=== PATIENT | male | born 1960 | race Caucasian/White ===

== ENCOUNTER → 2018-03-20 | Outpatient (CLI) | payer BC ==
[2018-03-20 10:27] LABS: Basophils # (auto) 0 uL; Basophils % (auto) 0.7 % (0.0-2.0); Eosinophils # (auto) 0.2 uL; Eosinophils % (auto) 2.3 % (0.0-7.0); Hematocrit 44.7 % (41.0-53.0); Hemoglobin 14.9 g/dL (13.5-17.5); Lymphocytes % (auto) 14.4 % (10.0-50.0); Mean Corpuscular Hemoglobin 29.8 pg (28.0-32.0); Mean Corpuscular Hgb Conc. 33.4 g/dL (32.0-36.0); Mean Corpuscular Volume 89.5 fL (80.0-100.0); Monocytes # (auto) 0.6 uL; Monocytes % (auto) 8.3 % (0.0-12.0); Neutrophils # (auto) 5.2 uL; Neutrophils % (auto) 74.3 % (37.0-80.0); Nucleated Red Blood Cells % 0.2 %; Platelet Count (auto) 219 10^3/uL (140-450); Red Cell Distribution Width 12.6 % (11.8-14.3)
[2018-03-20 10:52] LABS: Albumin 3.5 g/dL (3.4-5.0); Potassium 4.3 mmol/L (3.5-5.1)
[2018-03-20 11:00] LABS: BUN/Creatinine Ratio 19.8; Bilirubin, Total 0.5 mg/dL (0.2-1.0); Calcium 8.7 mg/dL (8.5-10.1)
== END | disposition home or self-care (01) ==
LOC: LAB 07:25
PROVIDERS: ATTEND Internal Medicine
DX: Z12.11 Encounter for screening for malignant neoplasm of colon (principal); E78.5 Hyperlipidemia, unspecified; E85.2 Heredofamilial amyloidosis, unspecified
CPT/HCPCS: 36415; 80053; 80061; 84153; 84443; 85025

== ENCOUNTER → 2018-03-28 | Outpatient (CLI) | payer BC | END | disposition home or self-care (01) | LOC: LAB 16:22 | PROVIDERS: ATTEND Internal Medicine | DX: Z12.11 Encounter for screening for malignant neoplasm of colon (principal); E85.2 Heredofamilial amyloidosis, unspecified; E78.5 Hyperlipidemia, unspecified | CPT/HCPCS: 82274 ==

== ENCOUNTER → 2018-06-12 | Day surgery (SDC) | payer BC ==
[2018-06-08 08:46] LABS: Basophils # (auto) 0 uL; Basophils % (auto) 0.6 % (0.0-2.0); Eosinophils # (auto) 0.1 uL; Eosinophils % (auto) 1.6 % (0.0-7.0); Hematocrit 45.1 % (41.0-53.0); Hemoglobin 15.6 g/dL (13.5-17.5); Lymphocytes # (auto) 1.2 uL; Mean Corpuscular Hemoglobin 30.3 pg (28.0-32.0); Mean Corpuscular Hgb Conc. 34.6 g/dL (32.0-36.0); Mean Corpuscular Volume 87.6 fL (80.0-100.0); Monocytes # (auto) 0.4 uL; Monocytes % (auto) 8.2 % (0.0-12.0); Neutrophils # (auto) 3.6 uL; Neutrophils % (auto) 67.6 % (37.0-80.0); Platelet Count (auto) 209 10^3/uL (140-450); Red Blood Cells 5.15 10^6/uL (4.5-5.90); Red Cell Distribution Width 12.5 % (11.8-14.3); White Blood Cell 5.3 10^3/uL (4.4-10.8)
[2018-06-08 09:04] LABS: INR 0.9 (0.9-1.15); Partial Thromboplastin Time 26.3 sec (23.78-33.04); Prothrombin Time 9.7 sec (9.27-12.13)
[~2018-06-12] VITALS: Ht 172.7 cm; Wt 78.0 kg
[~2018-06-12] MED LIST: SIMV10TA84 PO; SODIUM CHLORIDE LOCK 10 ML ONE; diphenhdrAMINE HCL 50 MG/1 ML VL ONE
[2018-06-12] MEDS: fentaNYL CITRATE 100 MCG/2 ML VL ONE ×2 (10:02→10:08)
[2018-06-12] MEDS: MIDAZOLAM HCL 5 MG/ML-1ML VIAL ONE ×2 (10:02→10:08)
[2018-06-12 10:55] VITALS: BP 121/63
== END | disposition home or self-care (01) ==
LOC: GI 08:58
PROVIDERS: ATTEND Internal Medicine Gastroenterology
DX: K64.8 Other hemorrhoids (principal); D12.5 Benign neoplasm of sigmoid colon; Z79.899 Other long term (current) drug therapy
CPT/HCPCS: 36415; 45380; 85025; 85610; 85730; 88305; J1200; J2250; J3010; J7030; 99152

== ENCOUNTER → 2019-06-25 | Outpatient (CLI) | payer BC ==
[~2019-06-25] MED LIST changes: -SODIUM CHLORIDE LOCK 10 ML ONE; -diphenhdrAMINE HCL 50 MG/1 ML VL ONE
[2019-06-25 08:21] LABS: Basophils # (auto) 0 uL; Basophils % (auto) 0.5 % (0.0-2.0); Eosinophils # (auto) 0.1 uL; Eosinophils % (auto) 1.7 % (0.0-7.0); Hematocrit 45.2 % (41.0-53.0); Hemoglobin 15.6 g/dL (13.5-17.5); Lymphocytes % (auto) 20.7 % (10.0-50.0); Mean Corpuscular Hemoglobin 30.8 pg (28.0-32.0); Mean Corpuscular Hgb Conc. 34.6 g/dL (32.0-36.0); Mean Corpuscular Volume 88.9 fL (80.0-100.0); Monocytes # (auto) 0.4 uL; Monocytes % (auto) 8.4 % (0.0-12.0); Neutrophils # (auto) 3.3 uL; Neutrophils % (auto) 68.7 % (37.0-80.0); Nucleated Red Blood Cells % 0.4 %; Platelet Count (auto) 217 10^3/uL (140-450); Red Blood Cells 5.08 10^6/uL (4.5-5.90); Red Cell Distribution Width 12.9 % (11.8-14.3); White Blood Cell 4.8 10^3/uL (4.4-10.8)
[2019-06-25 08:46] LABS: Albumin 3.9 g/dL (3.4-5.0); Calcium 9.2 mg/dL (8.5-10.1); Potassium 4.3 mmol/L (3.5-5.1)
[2019-06-25 08:53] LABS: BUN/Creatinine Ratio 19.7; Bilirubin, Total 0.7 mg/dL (0.2-1.0); Total Protein 7.4 g/dL (6.4-8.2)
[2019-06-26 07:11] LABS: Immunoglobulin G, Serum 843 mg/dL (700-1600)
== END | disposition home or self-care (01) ==
LOC: LAB 07:43
PROVIDERS: ATTEND Internal Medicine
DX: Z00.00 Encounter for general adult medical examination without abnormal findings (principal); E78.5 Hyperlipidemia, unspecified; Z12.5 Encounter for screening for malignant neoplasm of prostate
CPT/HCPCS: 36415; 80053; 80061; 82784; 83883; 84153; 84155; 84165; 84443; 85025; 85652

== ENCOUNTER → 2019-08-28 | Outpatient (CLI) | payer BC | END | disposition home or self-care (01) | LOC: LAB 14:26 | PROVIDERS: ATTEND Internal Medicine | DX: R94.4 Abnormal results of kidney function studies (principal) | CPT/HCPCS: 36415; 82565; 84520 ==

== ENCOUNTER → 2020-06-21 | Outpatient (CLI) | payer BC ==
[2020-06-21 08:34] LABS: Basophils # (auto) 0 10 ^3/uL (0-0.2); Basophils % (auto) 0.4 % (0.0-2.0); Eosinophils # (auto) 0.1 10 ^3/uL (0-0.8); Eosinophils % (auto) 1.9 % (0.0-7.0); Hematocrit 42.6 % (41.0-53.0); Hemoglobin 14.6 g/dL (13.5-17.5); Lymphocytes # (auto) 1.3 10 ^3/uL (0.4-5.4); Lymphocytes % (auto) 23.8 % (10.0-50.0); Mean Corpuscular Hemoglobin 30.4 pg (28.0-32.0); Mean Corpuscular Hgb Conc. 34.3 g/dL (32.0-36.0); Mean Corpuscular Volume 88.4 fL (80.0-100.0); Monocytes # (auto) 0.4 10 ^3/uL (0-1.3); Monocytes % (auto) 8.3 % (0.0-12.0); Neutrophils # (auto) 3.5 10 ^3/uL (1.6-8.6); Neutrophils % (auto) 65.6 % (37.0-80.0); Nucleated Red Blood Cells % 0.2 %; Platelet Count (auto) 209 10^3/uL (140-450); Red Blood Cells 4.82 10^6/uL (4.5-5.90); Red Cell Distribution Width 12.6 % (11.8-14.3); White Blood Cell 5.4 10^3/uL (4.4-10.8)
[2020-06-21 09:04] LABS: Potassium 4.3 mmol/L (3.5-5.1)
[2020-06-21 09:12] LABS: Albumin 3.5 g/dL (3.4-5.0); Bilirubin, Total 0.8 mg/dL (0.2-1.0); Calcium 8.8 mg/dL (8.5-10.1); Total Protein 7.1 g/dL (6.4-8.2)
[2020-06-23 14:12] LABS: Free T4 (Free Thyroxine) 1.01 ng/dL (0.89-1.76); Prostate Specific Antigen 0.4 ng/mL (0.0-4.0)
== END | disposition home or self-care (01) ==
LOC: LAB 08:03
PROVIDERS: ATTEND Internal Medicine
DX: Z00.00 Encounter for general adult medical examination without abnormal findings (principal); Z12.5 Encounter for screening for malignant neoplasm of prostate; Z12.11 Encounter for screening for malignant neoplasm of colon; E85.4 Organ-limited amyloidosis
CPT/HCPCS: 36415; 80053; 80061; 84153; 84439; 84443; 85025

== ENCOUNTER → 2022-10-25 | Outpatient (CLI) | payer BC ==
[~2022-10-25] MED LIST changes: +SIMV10TA20 PO; -SIMV10TA84 PO
[2022-10-25 08:10] LABS: Basophils # (auto) 0 10 ^3/uL (0-0.2); Basophils % (auto) 0.6 % (0.0-2.0); Eosinophils # (auto) 0.1 10 ^3/uL (0-0.8); Eosinophils % (auto) 2.5 % (0.0-7.0); Hematocrit 43.4 % (41.0-53.0); Hemoglobin 14.9 g/dL (13.5-17.5); Lymphocytes # (auto) 1.4 10 ^3/uL (0.4-5.4); Mean Corpuscular Hgb Conc. 34.4 g/dL (32.0-36.0); Mean Corpuscular Volume 87.2 fL (80.0-100.0); Monocytes # (auto) 0.5 10 ^3/uL (0-1.3); Neutrophils # (auto) 3.6 10 ^3/uL (1.6-8.6); Neutrophils % (auto) 63.9 % (37.0-80.0); Nucleated Red Blood Cells % 0.2 %; Red Blood Cells 4.97 10^6/uL (4.5-5.90); Red Cell Distribution Width 12.9 % (11.8-14.3); White Blood Cell 5.6 10^3/uL (4.4-10.8)
[2022-10-25 08:15] LABS: Urine Bacteria NONE SEEN /hpf (None Seen); Urine Blood Negative /uL (Negative); Urine Hyaline Cast FEW /lpf (0 - 2); Urine Mucus FEW (None Seen); Urine Specific Gravity 1.025 (1.001-1.035); Urine WBC 1 /hpf (0 - 3)
[2022-10-25 08:42] LABS: Albumin 3.5 g/dL (3.4-5.0); Calcium 8.9 mg/dL (8.5-10.1); Potassium 3.9 mmol/L (3.5-5.1)
[2022-10-25 08:48] LABS: BUN/Creatinine Ratio 18.4 (10.0-20.0); Bilirubin, Total 0.5 mg/dL (0.2-1.0); Total Protein 7.2 g/dL (6.4-8.2)
== END | disposition home or self-care (01) ==
LOC: LAB 07:31
PROVIDERS: ATTEND Internal Medicine
DX: Z13.1 Encounter for screening for diabetes mellitus (principal); Z29.9 Encounter for prophylactic measures, unspecified
CPT/HCPCS: 36415; 80053; 80061; 81001; 83036; 84439; 84443; 85025; 86703; 86803

== ENCOUNTER → 2022-11-30 | Outpatient (CLI) | payer BC ==
[2022-11-30 07:02] LABS: Basophils # (auto) 0 10 ^3/uL (0-0.2); Basophils % (auto) 0.5 % (0.0-2.0); Eosinophils # (auto) 0.1 10 ^3/uL (0-0.8); Eosinophils % (auto) 2.2 % (0.0-7.0); Hematocrit 42.5 % (41.0-53.0); Hemoglobin 14.7 g/dL (13.5-17.5); Lymphocytes # (auto) 1.5 10 ^3/uL (0.4-5.4); Lymphocytes % (auto) 24.3 % (10.0-50.0); Mean Corpuscular Hgb Conc. 34.5 g/dL (32.0-36.0); Monocytes # (auto) 0.6 10 ^3/uL (0-1.3); Monocytes % (auto) 9.5 % (0.0-12.0); Neutrophils % (auto) 63.5 % (37.0-80.0); Nucleated Red Blood Cells % 0.1 %; Red Blood Cells 4.88 10^6/uL (4.5-5.90); White Blood Cell 6.3 10^3/uL (4.4-10.8)
[2022-11-30 07:34] LABS: Albumin 3.5 g/dL (3.4-5.0); Calcium 8.6 mg/dL (8.5-10.1)
[2022-11-30 07:37] LABS: BUN/Creatinine Ratio 14.9 (10.0-20.0); Bilirubin, Total 0.6 mg/dL (0.2-1.0); Uric Acid 5.9 mg/dL (3.5-7.2)
[2022-12-01 07:07] LABS: Immunoglobulin G, Serum 839 mg/dL (603-1613)
== END | disposition home or self-care (01) ==
LOC: LAB 06:45
PROVIDERS: ATTEND Internal Medicine
DX: E85.4 Organ-limited amyloidosis (principal)
CPT/HCPCS: 36415; 80053; 82784; 83615; 83883; 84155; 84165; 84550; 85025

== ENCOUNTER 2023-03-04 09:24 | Day surgery (SDC) | payer BC ==
[2023-03-01 16:03] LABS: Basophils # (auto) 0 10 ^3/uL (0-0.2); Basophils % (auto) 0.7 % (0.0-2.0); Eosinophils # (auto) 0.2 10 ^3/uL (0-0.8); Eosinophils % (auto) 2.8 % (0.0-7.0); Hematocrit 41.6 % (41.0-53.0); Hemoglobin 14.3 g/dL (13.5-17.5); Lymphocytes # (auto) 1.4 10 ^3/uL (0.4-5.4); Lymphocytes % (auto) 24.2 % (10.0-50.0); Mean Corpuscular Hemoglobin 29.9 pg (28.0-32.0); Mean Corpuscular Hgb Conc. 34.3 g/dL (32.0-36.0); Mean Corpuscular Volume 87.2 fL (80.0-100.0); Monocytes # (auto) 0.6 10 ^3/uL (0-1.3); Monocytes % (auto) 9.6 % (0.0-12.0); Neutrophils # (auto) 3.7 10 ^3/uL (1.6-8.6); Neutrophils % (auto) 62.7 % (37.0-80.0); Nucleated Red Blood Cells % 0.3 %; Red Blood Cells 4.77 10^6/uL (4.5-5.90); White Blood Cell 5.9 10^3/uL (4.4-10.8)
[2023-03-01 16:21] LABS: INR 0.95 (0.9-1.15); Partial Thromboplastin Time 27.5 SEC (24.5-34.5)
[2023-03-01 16:35] LABS: Alanine Aminotransferase 16 U/L (7-40); Albumin 4.1 g/dL (3.2-4.8); Alkaline Phosphatase 71 U/L (46-116); Anion Gap 5 (5-15); Aspartate Aminotransferase 11 U/L (13-40); BUN/Creatinine Ratio 15.7 (10.0-20.0); Bilirubin, Total 0.5 mg/dL (0.2-1.0); Blood Urea Nitrogen 17 mg/dL (9-23); Calcium 9.3 mg/dL (8.5-10.1); Carbon Dioxide 30 mmol/L (20-30); Chloride 107 mmol/L (98-107); Glucose 108 mg/dL (74-106); Potassium 3.6 mmol/L (3.5-5.1); Sodium 142 mmol/L (136-145); Total Protein 6.7 g/dL (5.7-8.2)
[~2023-03-04] VITALS: Ht 172.7 cm; Wt 81.6 kg
[~2023-03-04 09:24] MED LIST changes: -SIMV10TA20 PO; +SIMV20TA20 PO
[2023-03-04 10:43] VITALS: PULSE 77; RESP 18; O2SAT 96
[2023-03-04] MEDS: diphenhdrAMINE HCL 50 MG/1 ML VL ONE ×2 (10:47→10:50)
[2023-03-04] MEDS: fentaNYL CITRATE 100 MCG/2 ML VL ONE ×3 (10:47→10:54)
[2023-03-04] MEDS: MIDAZOLAM HCL 2MG/2ML 2ml VIAL (1mg/ml) ONE ×4 (10:47→10:57)
[2023-03-04 11:10] VITALS: TEMP 97.7; O2SAT 99
[2023-03-04 11:58] VITALS: BP 133/85; PULSE 75; RESP 17; O2SAT 95
== END 2023-03-04 12:08 | disposition home or self-care (01) ==
LOC: GI 09:24
PROVIDERS: ATTEND Internal Medicine Gastroenterology
DX: Z12.11 Encounter for screening for malignant neoplasm of colon (principal); K57.30 Diverticulosis of large intestine without perforation or abscess without bleeding; K64.0 First degree hemorrhoids; K63.5 Polyp of colon; Z86.010 Personal history of colon polyps
CPT/HCPCS: 36415; 45380; 80053; 85025; 85610; 85730; J1200; J2250; J3010; J7030

== ENCOUNTER → 2023-06-06 | Outpatient (CLI) | payer BC ==
[2023-06-06 07:27] LABS: Basophils # (auto) 0 10 ^3/uL (0-0.2); Basophils % (auto) 0.7 % (0.0-2.0); Eosinophils # (auto) 0.1 10 ^3/uL (0-0.8); Eosinophils % (auto) 2.1 % (0.0-7.0); Hematocrit 44.4 % (41.0-53.0); Hemoglobin 14.9 g/dL (13.5-17.5); Lymphocytes # (auto) 1.3 10 ^3/uL (0.4-5.4); Lymphocytes % (auto) 24.2 % (10.0-50.0); Mean Corpuscular Hemoglobin 29.6 pg (28.0-32.0); Mean Corpuscular Hgb Conc. 33.5 g/dL (32.0-36.0); Mean Corpuscular Volume 88.3 fL (80.0-100.0); Monocytes # (auto) 0.4 10 ^3/uL (0-1.3); Monocytes % (auto) 8.5 % (0.0-12.0); Neutrophils # (auto) 3.4 10 ^3/uL (1.6-8.6); Neutrophils % (auto) 64.5 % (37.0-80.0); Nucleated Red Blood Cells % 0.4 %; Red Blood Cells 5.03 10^6/uL (4.5-5.90); Red Cell Distribution Width 13.1 % (11.8-14.3); White Blood Cell 5.2 10^3/uL (4.4-10.8)
[2023-06-06 08:13] LABS: Alanine Aminotransferase 23 U/L (7-40); Albumin 4.3 g/dL (3.2-4.8); Alkaline Phosphatase 71 U/L (46-116); Anion Gap 6 (5-15); Aspartate Aminotransferase 23 U/L (13-40); BUN/Creatinine Ratio 12.1 (10.0-20.0); Bilirubin, Total 0.9 mg/dL (0.2-1.0); Blood Urea Nitrogen 15 mg/dL (9-23); Calcium 9.4 mg/dL (8.5-10.1); Carbon Dioxide 29 mmol/L (20-30); Chloride 108 mmol/L (98-107); Glucose 104 mg/dL (74-106); Potassium 3.8 mmol/L (3.5-5.1); Sodium 143 mmol/L (136-145)
[2023-06-06 09:06] LABS: Uric Acid 5.4 mg/dL (3.7-9.2)
[2023-06-07 08:06] LABS: Immunoglobulin A 378 mg/dL (61-437); Immunoglobulin G, Serum 857 mg/dL (603-1613); Immunoglobulin M 294 mg/dL (20-172)
[2023-06-07 12:07] LABS: Kappa Lite Chain Free Serum 28.2 mg/L (3.3-19.4)
[2023-06-07 13:06] LABS: Albumin 3.7 g/dL (2.9-4.4); Alpha-1-Globulin 0.3 g/dL (0.0-0.4); Alpha-2-Globulin 0.7 g/dL (0.4-1.0); Gamma Globulin 0.9 g/dL (0.4-1.8); Globulin Total 3.1 g/dL (2.2-3.9); Protein Total Serum 6.8 g/dL (6.0-8.5)
== END | disposition home or self-care (01) ==
LOC: LAB 07:07
PROVIDERS: ATTEND Internal Medicine
DX: E85.4 Organ-limited amyloidosis (principal)
CPT/HCPCS: 36415; 80053; 82784; 83615; 83883; 84155; 84165; 84550; 85025

== ENCOUNTER → 2024-03-02 | Outpatient (CLI) | payer BC ==
[2024-03-02 07:36] LABS: Basophils # (auto) 0 10 ^3/uL (0-0.2); Basophils % (auto) 0.6 % (0.0-2.0); Eosinophils # (auto) 0.1 10 ^3/uL (0-0.8); Eosinophils % (auto) 2.2 % (0.0-7.0); Hemoglobin 14.8 g/dL (13.5-17.5); Lymphocytes # (auto) 1.1 10 ^3/uL (0.4-5.4); Lymphocytes % (auto) 20.4 % (10.0-50.0); Mean Corpuscular Hemoglobin 31.2 pg (28.0-32.0); Mean Corpuscular Hgb Conc. 35.3 g/dL (32.0-36.0); Mean Corpuscular Volume 88.4 fL (80.0-100.0); Monocytes # (auto) 0.4 10 ^3/uL (0-1.3); Monocytes % (auto) 8.1 % (0.0-12.0); Neutrophils # (auto) 3.7 10 ^3/uL (1.6-8.6); Neutrophils % (auto) 68.7 % (37.0-80.0); Nucleated Red Blood Cells % 0.1 %; Platelet Count (auto) 222 10^3/uL (140-450); Red Blood Cells 4.75 10^6/uL (4.5-5.90); White Blood Cell 5.4 10^3/uL (4.4-10.8)
[2024-03-02 08:15] LABS: Alanine Aminotransferase 27 U/L (7-40); Albumin 4.3 g/dL (3.2-4.8); Alkaline Phosphatase 89 U/L (46-116); Anion Gap 5 (5-15); Aspartate Aminotransferase 17 U/L (13-40); BUN/Creatinine Ratio 14.9 (10.0-20.0); Blood Urea Nitrogen 17 mg/dL (9-23); Calcium 9.6 mg/dL (8.7-10.4); Carbon Dioxide 29 mmol/L (20-31); Chloride 108 mmol/L (98-107); Glucose 106 mg/dL (74-106); LDL Cholesterol 129 mg/dL (< 100); Sodium 142 mmol/L (136-145); Triglycerides 137 mg/dL (< 150)
[2024-03-02 08:16] LABS: Bilirubin, Total 0.8 mg/dL (0.2-1.0); Cholesterol 188 mg/dL (< 200); HDL Cholesterol 44 mg/dL (40-59)
[2024-03-03 08:06] LABS: Immunoglobulin A 377 mg/dL (61-437); Immunoglobulin G, Serum 873 mg/dL (603-1613); Immunoglobulin M 271 mg/dL (20-172)
[2024-03-03 10:06] LABS: Kappa Lite Chain Free Serum 26.2 mg/L (3.3-19.4)
== END | disposition home or self-care (01) ==
LOC: LAB 07:17
PROVIDERS: ATTEND Internal Medicine
DX: I12.9 Hypertensive chronic kidney disease with stage 1 through stage 4 chronic kidney disease, or unspecified chronic kidney disease (principal); N18.2 Chronic kidney disease, stage 2 (mild); R73.03 Prediabetes; E85.4 Organ-limited amyloidosis; E78.5 Hyperlipidemia, unspecified
CPT/HCPCS: 36415; 80053; 80061; 82232; 82784; 83036; 83521; 84155; 84165; 85025

== ENCOUNTER → 2024-08-27 | Outpatient (CLI) | payer BC ==
[2024-08-27 07:44] LABS: Basophils # (auto) 0 10 ^3/uL (0-0.2); Basophils % (auto) 0.5 % (0.0-2.0); Eosinophils # (auto) 0.1 10 ^3/uL (0-0.8); Hematocrit 44.8 % (41.0-53.0); Hemoglobin 15.5 g/dL (13.5-17.5); Lymphocytes # (auto) 1.3 10 ^3/uL (0.4-5.4); Lymphocytes % (auto) 18.5 % (10.0-50.0); Mean Corpuscular Hemoglobin 30.5 pg (28.0-32.0); Mean Corpuscular Hgb Conc. 34.5 g/dL (32.0-36.0); Mean Corpuscular Volume 88.2 fL (80.0-100.0); Monocytes # (auto) 0.5 10 ^3/uL (0-1.3); Monocytes % (auto) 7.1 % (0.0-12.0); Neutrophils # (auto) 4.9 10 ^3/uL (1.6-8.6); Neutrophils % (auto) 71.9 % (37.0-80.0); Nucleated Red Blood Cells % 0.1 %; Platelet Count (auto) 220 10^3/uL (140-450); Red Blood Cells 5.08 10^6/uL (4.5-5.90); White Blood Cell 6.8 10^3/uL (4.4-10.8)
[2024-08-27 08:07] LABS: Alanine Aminotransferase 24 U/L (7-40); Alkaline Phosphatase 77 U/L (46-116); Anion Gap 9 (5-15); BUN/Creatinine Ratio 15.4 (10.0-20.0); Blood Urea Nitrogen 19 mg/dL (9-23); Calcium 9.8 mg/dL (8.7-10.4); Carbon Dioxide 29 mmol/L (20-31); Chloride 107 mmol/L (98-107); Potassium 4.3 mmol/L (3.5-5.1); Sodium 145 mmol/L (136-145); Triglycerides 120 mg/dL (< 150)
[2024-08-27 08:09] LABS: Albumin 4.4 g/dL (3.2-4.8); Aspartate Aminotransferase 20 U/L (13-40); Cholesterol 189 mg/dL (< 200); Glucose 114 mg/dL (74-106); HDL Cholesterol 43 mg/dL (40-59); LDL Cholesterol 127 mg/dL (< 100)
[2024-08-27 08:10] LABS: Bilirubin, Total 0.7 mg/dL (0.2-1.0)
== END | disposition home or self-care (01) ==
LOC: LAB 07:15
PROVIDERS: ATTEND Internal Medicine
DX: I12.9 Hypertensive chronic kidney disease with stage 1 through stage 4 chronic kidney disease, or unspecified chronic kidney disease (principal); N18.2 Chronic kidney disease, stage 2 (mild); R73.03 Prediabetes; R80.9 Proteinuria, unspecified; E66.3 Overweight; Z00.01 Encounter for general adult medical examination with abnormal findings
CPT/HCPCS: 36415; 80053; 80061; 83036; 84439; 84443; 85025

== ENCOUNTER → 2024-11-02 | Outpatient (CLI) | payer BC ==
[2024-11-02 08:06] LABS: Basophils # (auto) 0 10 ^3/uL (0-0.2); Basophils % (auto) 0.5 % (0.0-2.0); Eosinophils # (auto) 0.1 10 ^3/uL (0-0.8); Eosinophils % (auto) 1.1 % (0.0-7.0); Hematocrit 44.4 % (41.0-53.0); Hemoglobin 15.3 g/dL (13.5-17.5); Lymphocytes # (auto) 1.2 10 ^3/uL (0.4-5.4); Lymphocytes % (auto) 13.2 % (10.0-50.0); Mean Corpuscular Hemoglobin 29.8 pg (28.0-32.0); Mean Corpuscular Hgb Conc. 34.4 g/dL (32.0-36.0); Mean Corpuscular Volume 86.8 fL (80.0-100.0); Monocytes # (auto) 0.6 10 ^3/uL (0-1.3); Monocytes % (auto) 6.6 % (0.0-12.0); Neutrophils # (auto) 6.9 10 ^3/uL (1.6-8.6); Neutrophils % (auto) 78.6 % (37.0-80.0); Nucleated Red Blood Cells % 0.1 %; Platelet Count (auto) 208 10^3/uL (140-450); Red Blood Cells 5.11 10^6/uL (4.5-5.90); Red Cell Distribution Width 13.3 % (11.8-14.3); White Blood Cell 8.8 10^3/uL (4.4-10.8)
[2024-11-02 08:29] LABS: Alanine Aminotransferase 37 U/L (7-40); Albumin 4.4 g/dL (3.2-4.8); Alkaline Phosphatase 87 U/L (46-116); Anion Gap 9 (5-15); Aspartate Aminotransferase 25 U/L (<34); BUN/Creatinine Ratio 18.4 (10.0-20.0); Bilirubin, Total 0.9 mg/dL (0.2-1.0); Blood Urea Nitrogen 21 mg/dL (9-23); Carbon Dioxide 30 mmol/L (20-31); Chloride 106 mmol/L (98-107); Glucose 97 mg/dL (74-106); Potassium 3.8 mmol/L (3.5-5.1); Sodium 145 mmol/L (136-145); Total Protein 6.9 g/dL (5.7-8.2)
[2024-11-02 08:44] LABS: % Iron Saturation 21.5 % (20-55)
[2024-11-02 09:09] LABS: Thyroid Stimulating Hormone 2.1 uIU/mL (0.55-4.78)
[2024-11-03 08:07] LABS: Immunoglobulin A 349 mg/dL (61-437); Immunoglobulin G, Serum 787 mg/dL (603-1613); Immunoglobulin M 246 mg/dL (20-172)
[2024-11-03 09:07] LABS: Kappa Lite Chain Free Serum 29.5 mg/L (3.3-19.4)
[2024-11-06 09:07] LABS: Albumin 3.5 g/dL (2.9-4.4); Alpha-1-Globulin 0.3 g/dL (0.0-0.4); Alpha-2-Globulin 0.7 g/dL (0.4-1.0); Gamma Globulin 0.8 g/dL (0.4-1.8); Globulin Total 3.1 g/dL (2.2-3.9); Protein Total Serum 6.6 g/dL (6.0-8.5)
== END | disposition home or self-care (01) ==
LOC: LAB 07:43
PROVIDERS: ATTEND Nurse Practitioner
DX: E85.4 Organ-limited amyloidosis (principal)
CPT/HCPCS: 36415; 80053; 82728; 82784; 83521; 83540; 83550; 83615; 84155; 84165; 84443; 85025; 86334

== ENCOUNTER 2025-02-18 08:10 | Outpatient (CLI) | payer BC ==
[2025-02-18 08:49] LABS: Hematocrit 43.9 % (41.0-53.0); Hemoglobin 15.0 g/dL (13.5-17.5); Mean Corpuscular Hemoglobin 30.2 pg (28.0-32.0); Mean Corpuscular Volume 88.2 fL (80.0-100.0); Nucleated Red Blood Cells % 0.2 %
[2025-02-18 08:52] LABS: Urine Amorphous Crystal FEW /hpf (None Seen); Urine Protein, UAD Negative (Negative)
[2025-02-18 09:34] LABS: Albumin 4.4 g/dL (3.2-4.8); Alkaline Phosphatase 87 U/L (46-116); Anion Gap 10 (5-15); BUN/Creatinine Ratio 15.0 (10.0-20.0); Blood Urea Nitrogen 17 mg/dL (9-23); Calcium 9.5 mg/dL (8.7-10.4); Carbon Dioxide 29 mmol/L (20-31); Chloride 104 mmol/L (98-107); Glucose 94 mg/dL (74-106); Potassium 4.0 mmol/L (3.5-5.1); Sodium 143 mmol/L (136-145); Thyroid Stimulating Hormone 1.73 uIU/mL (0.55-4.78); Total Protein 7.4 g/dL (5.7-8.2); Triglycerides 105 mg/dL (< 150)
[2025-02-18 09:35] LABS: Alanine Aminotransferase 52 U/L (7-40); Bilirubin, Total 1.0 mg/dL (0.2-1.0); Cholesterol 208 mg/dL (< 200); HDL Cholesterol 52 mg/dL (40-59)
[2025-02-18 11:07] LABS: Iron 117.0 ug/dL (65-175)
[2025-02-18 11:10] LABS: Total Iron Binding Capacity 297.0 ug/dL (250-425)
[2025-02-18 11:18] LABS: Ferritin 119.9 ng/mL (22-322); Free T4 (Free Thyroxine) 1.29 ng/dL (0.89-1.76)
[2025-02-19 08:07] LABS: Immunoglobulin A 376 mg/dL (61-437); Immunoglobulin G, Serum 788 mg/dL (603-1613); Immunoglobulin M 280 mg/dL (20-172)
[2025-02-19 10:07] LABS: Kappa Lite Chain Free Serum 21.6 mg/L (3.3-19.4)
== END 2025-02-18 17:00 | disposition home or self-care (01) ==
LOC: LAB 08:10
PROVIDERS: ATTEND Internal Medicine
DX: I12.9 Hypertensive chronic kidney disease with stage 1 through stage 4 chronic kidney disease, or unspecified chronic kidney disease (principal); N18.2 Chronic kidney disease, stage 2 (mild); E85.4 Organ-limited amyloidosis
CPT/HCPCS: 36415; 80053; 80061; 81001; 82728; 82784; 83036; 83521; 83540; 83550; 83615; 84155; 84165; 84439; 84443; 85025; 86334

== ENCOUNTER 2025-03-13 15:51 | Outpatient (CLI) | payer BC ==
[2025-03-13 17:57] LABS: Alanine Aminotransferase 20 U/L (7-40); Alkaline Phosphatase 79 U/L (46-116); Anion Gap 7 (5-15); BUN/Creatinine Ratio 15.1 (10.0-20.0); Blood Urea Nitrogen 18 mg/dL (9-23); Calcium 9.3 mg/dL (8.7-10.4); Carbon Dioxide 31 mmol/L (20-31); Chloride 107 mmol/L (98-107); Glucose 85 mg/dL (74-106); Potassium 4.2 mmol/L (3.5-5.1); Sodium 145 mmol/L (136-145); Total Protein 7.0 g/dL (5.7-8.2)
[2025-03-13 17:58] LABS: Albumin 4.2 g/dL (3.2-4.8); Bilirubin, Total 0.6 mg/dL (0.2-1.0)
== END 2025-03-13 17:00 | disposition home or self-care (01) ==
LOC: LAB 15:51
PROVIDERS: ATTEND Internal Medicine
DX: I12.9 Hypertensive chronic kidney disease with stage 1 through stage 4 chronic kidney disease, or unspecified chronic kidney disease (principal); N18.2 Chronic kidney disease, stage 2 (mild); Z12.5 Encounter for screening for malignant neoplasm of prostate
CPT/HCPCS: 36415; 80053; 84153